=== PATIENT | female | born 1975 | race Caucasian/White ===

== ENCOUNTER 2020-06-18 19:03 | Emergency (ER) | payer OTHER ==
[2020-06-18 19:18] VITALS: BP 135/66; PULSE 89; TEMP 99.9; BMI 25.9
[2020-06-18] MEDS ORDERED: ACETAMINOPHEN 500 MG TABLET (FP) PO ONE (19:49)
[2020-06-18] MEDS ORDERED: ACETAMINOPHEN 325 MG TABLET (FP) ONE (19:54)
== END 2020-06-18 20:11 | disposition home or self-care (01) ==
LOC: JER 19:03
DX: U07.1 COVID-19 (principal)
CPT/HCPCS: 99283-25; C9803; U0003

== ENCOUNTER 2023-03-08 20:37 | Emergency (ER) | payer OTHER ==
[2023-03-08 20:46] VITALS: BP 145/90; PULSE 81; RESP 22; TEMP 97.6; BMI 26.0
[2023-03-08] MEDS ORDERED: ALPRAZolam 0.25 MG TABLET PO ONE (21:20)
[2023-03-08] MEDS ORDERED: ALPRAZolam 0.25 MG TABLET ONE (21:27)
[2023-03-08 21:56] LABS: BASO % 0.2 % (0-2.0); EOS % 1.4 % (0-4.5); HEMATOCRIT 38.1 % (32.4-45.2); HEMOGLOBIN 13.2 GM/dL (10.7-15.3); MCH 31.8 pg (25.7-33.7); MCHC 34.6 g/dl (32.0-36.0); MEAN PLT VOLUME 8.9 fl (7.5-11.1); MONO % 8.2 % (3.8-10.2); NEUT % 66.2 % (42.8-82.8); PLATELET COUNT 244 10^3/uL (134-434); RBC 4.14 M/mm3 (3.60-5.2); RDW 12.3 % (11.6-15.6); WHITE BLOOD COUNT 7.1 K/mm3 (4.0-10.0)
[2023-03-08 22:38] LABS: MAGNESIUM 1.8 mg/dL (1.8-2.4); POTASSIUM 3.5 mmol/L (3.5-5.1)
[2023-03-08 22:41] LABS: CALCIUM 8.6 mg/dL (8.5-10.1); PHOSPHOROUS 2.6 mg/dL (2.5-4.9)
[2023-03-08 22:42] LABS: ALBUMIN 3.8 g/dl (3.4-5.0); BLOOD UREA NITROGEN 13.5 mg/dL (7-18)
[2023-03-08 22:45] LABS: CREATININE 0.9 mg/dL (0.55-1.3)
[2023-03-08 22:46] LABS: BILIRUBIN,TOTAL 0.5 mg/dL (0.2-1); TOT PROT 7.5 g/dl (6.4-8.2)
== END 2023-03-08 23:48 | disposition home or self-care (01) ==
LOC: JER 20:37
DX: F41.9 Anxiety disorder, unspecified (principal); R00.2 Palpitations
CPT/HCPCS: 36415; 71045-TC-FY; 80053; 83735; 84100; 84443; 84484; 85025; 93005; 93010; 99285-25

== ENCOUNTER 2023-06-05 19:00 | Emergency (ER) | payer OTHER ==
[2023-06-05 19:10] VITALS: BP 129/72; PULSE 93; RESP 16; TEMP 98.4; BMI 27.8
== END 2023-06-05 20:18 | disposition home or self-care (01) ==
LOC: JER 19:00 → JERFT 19:00
DX: R51.9 Headache, unspecified (principal); R09.81 Nasal congestion; R11.0 Nausea; J01.10 Acute frontal sinusitis, unspecified
CPT/HCPCS: 99283-25

== ENCOUNTER 2024-04-29 17:31 | Emergency (ER) | payer OTHER ==
[2024-04-29 18:05] VITALS: BP 132/81; PULSE 85; RESP 18; TEMP 98.4; BMI 27.9
[2024-04-29] MEDS ORDERED: IBUPROFEN 600 MG TABLET (FP) PO ONE (18:36)
[2024-04-29] MEDS ORDERED: ACETAMINOPHEN 500 MG TABLET (FP) ONE (18:36)
[2024-04-29] MEDS: IBUPROFEN 600 MG TABLET (FP) PO ONE (18:38)
[2024-04-29] MEDS: ACETAMINOPHEN 500 MG TABLET (FP) PO ONE (18:38)
== END 2024-04-29 20:05 | disposition home or self-care (01) ==
LOC: JERFT 17:31
DX: R05.9 Cough, unspecified (principal); M54.6 Pain in thoracic spine
CPT/HCPCS: 71046-TC-FY; 99283-25